=== PATIENT | female | born 1970 | race Caucasian/White ===

== ENCOUNTER → 2018-04-28 | Outpatient (CLI) | payer BC ==
--- NOTE | 2018-04-29 00:45 | MR ---
EXAMINATION TYPE: MR cervical spine wo/w con DATE OF EXAM: 04/28/2018 COMPARISON: None HISTORY: Cervicalgia /Arthrodesis status TECHNIQUE: Multiplanar, multisequence images of the cervical spine were acquired utilizing 6 mL intravenous Gada vist gadolinium contrast. Diffusion weighted imaging was performed. The cervical vertebra have normal alignment. There is metal artifact from the multilevel anterior fus ion surgery from C5 to C7. The cervical spinal cord has normal signal pattern without evidence of tevin ma. There is no evidence of cervical bony spinal stenosis. The brainstem appears intact. The posterio r elements are intact. There is no cervical paraspinal mass. The contrast images show no pathologic e nhancement. IMPRESSION: Negative MR scan of the cervical spine. Multilevel fusion surgery. No spinal stenosis.
== END | disposition home or self-care (01) ==
LOC: RADMRIMAIN 19:55
PROVIDERS: ATTEND Orthopaedic Surgery Orthopaedic Surgery of the Spine
DX: M96.1 Postlaminectomy syndrome, not elsewhere classified (principal); M50.121 Cervical disc disorder at C4-C5 level with radiculopathy; M47.812 Spondylosis without myelopathy or radiculopathy, cervical region; R20.2 Paresthesia of skin; Z87.891 Personal history of nicotine dependence; Z98.1 Arthrodesis status
CPT/HCPCS: 72156; A9585

== ENCOUNTER → 2020-09-11 | Outpatient (CLI) | payer BC ==
[2020-09-11 14:35] VITALS: BP 140/79; PULSE 73; RESP 18; TEMP 98.4
--- NOTE | 2020-09-11 15:57 | P.HPOB ---
History of Present Illness H&P Date: 09/11/20 Chief Complaint: The patient is here for her routine gynecologic exam and ma mmogram. This is a 50-year-old 89 with an LMP of 2013. The patient is complaining of hot flashes over the past 2 years that are moderate and very bothersome to her. She has also noticed vaginal dryness with sexual activity which is also bothersome to her. She is status post endometrial ablation and has been amenorrheic since 2013. Her is status post vasectomy. She is otherwise without gynecologic complaints. Review of Systems The patient has gained 29 pounds over the past 5 years. She denies respiratory, cardiac, or G.I. problems. Past Medical History Past Medical History: GERD/Reflux Additional Past Medical History / Comment(s): 04/11/15 Pt admitted to floor s/p anterior cervical decompression fusion C5-6, C6-7 with NIM monitoring. Other HX: NECK PAIN, NUMBNESS AND TINGLING DOWN RT ARM, herniated nucleus pulposis, IBS, RLS, mono as a teen. 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 History of Any Multi-Drug Resistant Organisms: None Reported Past Surgical History: Adenoidectomy, Breast Surgery, Section, Orthopedic Surgery, Tonsillectomy, Uterine Ablation Additional Past Surgical History / Comment(s): 04/11/15 Anterior decompression fusion C5-6, C6-7 with NIM monitoring. Other surgical history: JAMES BREAST AUGMENTATION, deviated septal surgery, cervical cerclage, uterine ablation. Past Anesthesia/Blood Transfusion Reactions: Postoperative Nausea & Vomiting (PONV) Additional Past Anesthesia/Blood Transfusion Reaction / Comment(s): STATES IS VERY HARD TO WAKE Past Psychological History: Anxiety, Depression Additional Psychological History / Comment(s): Pt resides with her spouse and children. She is independent. She uses no assitive device. She drives. Smoking Status: Former smoker Past Alcohol Use History: Occasional (One per week) Additional Past Alcohol Use History / Comment(s): STARTED SMOKING AGE [age] and is less than a ppd smoker. Quit smoking in 2016. Past Drug Use History: None Reported Additional History: She has been since 1993. 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 - Past Family History Father Family Medical History: Cancer Additional Family Medical History / Comment(s): BLADDER cancer. Father at 78yrs of complications with bladder cancer. Mother Family Medical History: COPD Additional Family Medical History / Comment(s): Mother is living. Medications and Allergies Home Medications Medication Instructions Recorded Confirmed Type Escitalopram [Lexapro] 10 mg PO HS 04/09/15 09/11/20 History Melatonin 3 mg PO HS 04/09/15 09/11/20 History Omeprazole [PriLOSEC] 20 mg PO DAILY 04/09/15 09/11/20 History Allergies Allergy/AdvReac Type Severity Reaction Status Date / Time No Known Allergies Allergy Verified 09/11/20 14:14 Exam Vital Signs Temp Pulse Resp BP Pulse Ox 09/11/20 14:33 98.4 F 73 18 140/79 99 Intake and Output 09/11/20 09/11/20 09/11/20 06:59 14:59 22:59 Other: Weight 76.204 kg Height 5 feet 2 inches, weight 168 pounds, BMI 30.7. This is a well-developed well-nourished white female who is alert and oriented times 3 in no acute distress. HEENT: Within normal limits. NECK: Supple without mass or thyromegaly. CHEST AND LUNGS: Clear to auscultation. HEART: Regular rate and rhythm. BREASTS: Are without mass or discharge. AXILLARY EXAM: Negative for adenopathy. BACK: Negative for CVA tenderness. ABDOMEN: Soft, nontender, without palpable masses. PELVIC EXAM: Normal external genitalia with minimal atrophy. Cervix and vagina appear normal with minimal atrophy. There is no unusual discharge. There is no evidence of prolapse. The uterus is midposition, nongravid size and nontender. There are no palpable adnexal masses or tenderness. RECTAL EXAM: Rectovaginal exam is negative for mass or tenderness and is negative for occult blood. EXTREMITIES: Nontender. IMPRESSION: 1. 50-year-old menopausal female with moderate vasomotor symptoms and vaginal dryness associated with the menopausal change. 2. Normal gynecologic exam. 3. Mildly elevated blood pressure. PLAN: 1. Pap smear cotest was performed. 2. Self breast awareness was discussed with the patient. 3. Screening mammogram will be done today. 4. We have had a long discussion regarding her menopausal symptoms. We've discussed options including no medications with conservative measures such as dressing in layers and drinking icewater went hot flashes occur. We will also discussed hormonal and nonhormonal options. We have discussed the [place] H I study findings including slight increased risk for heart attack, stroke, breast cancer and blood clots. After long discussion, the patient would like to have a trial of HRT. She understands that hormonal side effects include possible vaginal bleeding, breast tenderness, headache and nausea. The patient understands these things and would like to proceed. A prescription for estradiol 1 mg and progesterone 100 mg will be sent to [facility] pharmacy in [facility]. 5. She will make an appointment to return in approximately 1 months for reevaluation with HRT. She will also call if problems or questions. 6. She was advised to return in one year for her annual well woman exam.
--- NOTE | 2020-09-12 14:00 | MM ---
Reason for exam: screening (asymptomatic). Last mammogram was performed 5 years and 2 months ago. History: Patient is postmenopausal. Family history of breast cancer in mother at age 78. Saline implants in both breasts, 2000. Took hormonal contraceptives for 8 years. Physical Findings: A clinical breast exam by your physician is recommended on an annual basis and results should be correlated with mammographic findings. MG 3D Screen Mammo Imp/Cad Bilateral CC, MLO, and ID view(s) were taken. Prior study comparison: July 03, 2015, bilateral MG 3d screen mammo imp/cad. January 16, 2011, CAD bilateral diagnostic mammogram. The breast tissue is heterogeneously dense. This may lower the sensitivity of mammography. Bilateral breast prothesis. No significant changes when compared with prior studies. ASSESSMENT: Benign, BI-RAD 2 RECOMMENDATION: Routine screening mammogram of both breasts in 1 year.
== END | disposition home or self-care (01) ==
LOC: WWCWWP 13:59
PROVIDERS: ATTEND Obstetrics & Gynecology
DX: Z12.31 Encounter for screening mammogram for malignant neoplasm of breast (principal); Z01.419 Encounter for gynecological examination (general) (routine) without abnormal findings; N89.8 Other specified noninflammatory disorders of vagina; K21.9 Gastro-esophageal reflux disease without esophagitis; I10 Essential (primary) hypertension; F32.9 Major depressive disorder, single episode, unspecified; F41.9 Anxiety disorder, unspecified; Z78.0 Asymptomatic menopausal state; Z87.891 Personal history of nicotine dependence
CPT/HCPCS: 77063; 77067

== ENCOUNTER → 2023-03-03 | Outpatient (CLI) | payer BC ==
[2023-03-03 11:31] VITALS: BP 117/80; PULSE 98; RESP 17; TEMP 98.1
--- NOTE | 2023-03-03 12:32 | P.HPOB ---
History of Present Illness H&P Date: 03/03/23 Chief Complaint: The patient is here for her routine gynecologic exam and ma mmogram. This is a 53-year-old 89 with an LMP of 2013. The patient states she did not use HRT as prescribed in 2020 and she states her hot flashes are improving. She no longer has the hot flashes at night. She denies significant problems with vaginal dryness. She is otherwise without gynecologic complaints. Review of Systems The patient has lost 7 pounds over the last 2 years. She is trying to lose more weight. She denies respiratory, cardiac, or G.I. problems. Past Medical History Past Medical History: GERD/Reflux Additional Past Medical History / Comment(s): 04/11/15 Pt admitted to floor s/p anterior cervical decompression fusion C5-6, C6-7 with NIM monitoring. Other HX: NECK PAIN, herniated nucleus pulposis, IBS, RLS, mono as a teen. 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 History of Any Multi-Drug Resistant Organisms: None Reported Past Surgical History: Adenoidectomy, Breast Surgery, Section, Orthopedic Surgery, Tonsillectomy, Uterine Ablation Additional Past Surgical History / Comment(s): 04/11/15 Anterior decompression fusion C5-6, C6-7 with NIM monitoring. Other surgical history: JAMES BREAST AUGMENTATION, deviated septal surgery, cervical cerclage, uterine ablation. Past Anesthesia/Blood Transfusion Reactions: Postoperative Nausea & Vomiting (PONV) Additional Past Anesthesia/Blood Transfusion Reaction / Comment(s): STATES IS VERY HARD TO WAKE Past Psychological History: Anxiety, Depression Additional Psychological History / Comment(s): Pt resides with her spouse and children. She is independent. She uses no assitive device. She drives. Smoking Status: Former smoker Past Alcohol Use History: Occasional (0-2 drinks per week.) Additional Past Alcohol Use History / Comment(s): STARTED SMOKING AGE [age] and is less than a ppd smoker. Quit smoking in 2016. Past Drug Use History: None Reported Additional History: The patient has been since 1993. 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 - Past Family History Father Family Medical History: Cancer Additional Family Medical History / Comment(s): BLADDER cancer. Father at 78yrs of complications with bladder cancer. Mother Family Medical History: Cancer, COPD Additional Family Medical History / Comment(s): Mother is living. Breast cancer. A maternal cousin also has breast cancer. Medications and Allergies Home Medications Medication Instructions Recorded Confirmed Type Escitalopram [Lexapro] 10 mg PO HS 04/09/15 03/03/23 History Omeprazole [PriLOSEC] 20 mg PO DAILY 04/09/15 03/03/23 History Allergies Allergy/AdvReac Type Severity Reaction Status Date / Time No Known Allergies Allergy Verified 03/03/23 11:24 Exam Vital Signs Temp Pulse Resp BP Pulse Ox 03/03/23 11:25 98.1 F 98 17 117/80 98 Intake and Output 03/02/23 03/03/23 03/03/23 22:59 06:59 14:59 Other: Weight 73.028 kg Height 5 feet 2 inches, weight 161 pounds, BMI 29.4. This is a well-developed well-nourished white female who is alert and oriented times 3 in no acute distress. HEENT: Within normal limits. NECK: Supple without mass or thyromegaly. CHEST AND LUNGS: Clear to auscultation. HEART: Regular rate and rhythm. BREASTS: Are without mass or discharge. The patient has bilateral breast implants. AXILLARY EXAM: Negative for adenopathy. BACK: Negative for CVA tenderness. ABDOMEN: Soft, nontender, without palpable masses. PELVIC EXAM: Normal external genitalia with minimal atrophy. Cervix and vagina appear normal with minimal atrophy. There is no unusual discharge. There is no evidence of prolapse. The uterus is midposition, nongravid size and nontender. There are no palpable adnexal masses or tenderness. RECTAL EXAM: Rectovaginal exam is negative for mass or tenderness and is negative for occult blood. EXTREMITIES: Nontender. IMPRESSION: 1. 53-year-old menopausal female with normal gynecologic exam. 2. Family history breast cancer in her mother. PLAN: 1. Pap smear was deferred since she had a negative Pap smear, test on 09/11/2020. 2. Self breast awareness was discussed with the patient. We have also discussed symptoms associated with inflammatory breast cancer. 3. Screening mammogram will be done today. 4. Osteoporosis prevention was discussed. I have stressed the importance of adequate calcium, vitamin D and regular exercise. Recommended amounts of calcium and vitamin D were also discussed. 5. That controlled was discussed with the patient. I have stressed the importance of good nutrition, regular meals, adequate fiber, and regular activity. 6. With her mother's family history of breast cancer I have stressed the importance of yearly mammograms. We did discuss the option of cancer genetic testing and we discussed pros and cons with this type of testing. She will try to review her family history and she will wean off there aren't any other blood relatives with cancer, including ovarian and colon cancer. At this time I'm recommending regular self breast examination and yearly mammograms. We will reevaluate the option of genetic cancer screening if she has other family members with cancer. 7. She was advised to return in one year for her annual well woman exam.
--- NOTE | 2023-03-04 15:37 | MM ---
Reason for Exam: Screening (asymptomatic). Last mammogram was performed 2 year(s) and 6 month(s) ago. Patient History: Menarche at age 15. First Full-Term at age 24. Postmenopausal. Patient used Hormonal Contraceptives for 8 years. 2000, Bilateral Implants. Maternal cousin had breast cancer, age 48. Paternal aunt had breast cancer, age 73. Mother had breast cancer, age 78. Risk Values: Caty 5 year model risk: 2.0%. NCI Lifetime model risk: 14.5%. Prior Study Comparison: 01/16/2011 Bilateral Diagnostic Mammogram, [facility]. 07/03/2015 Bilateral Screening Mammogram, [facility]. 09/11/2020 Bilateral Screening Mammogram, [facility]. Tissue Density: There are scattered fibroglandular densities. Findings: Analyzed By CAD. The pattern is is symmetrical and stable. Bilateral breast prostheses are present. No significant interval changes are evident. No suspicious groups of microcalcifications, spiculated or lobular masses, architectural distortion or other secondary signs of malignancy are mammographically apparent. Overall Assessment: Benign, BI-RAD 2 Management: Screening Mammogram of both breasts in 1 year. A negative mammogram report should not preclude additional follow up of suspicious palpable abnormalities. Patient should continue monthly self breast exam. A clinical breast exam by your physician is recommended on an annual basis and results should be correlated with mammographic findings. Electronically signed and approved by: Horace Snowden D.O. Radiologis
== END ==
LOC: WWCWWP 11:19
PROVIDERS: ATTEND Obstetrics & Gynecology
DX: Z12.31 Encounter for screening mammogram for malignant neoplasm of breast (principal); K21.9 Gastro-esophageal reflux disease without esophagitis; G25.81 Restless legs syndrome; K58.9 Irritable bowel syndrome, unspecified; F41.9 Anxiety disorder, unspecified; F32.A Depression, unspecified; Z78.0 Asymptomatic menopausal state; Z80.3 Family history of malignant neoplasm of breast; Z87.891 Personal history of nicotine dependence; Z98.1 Arthrodesis status; Z98.82 Breast implant status
CPT/HCPCS: 77063; 77067